=== PATIENT | female | born 1990 | race Caucasian/White ===

== ENCOUNTER 2018-08-05 06:30 | Emergency (ER) | payer OTHER ==
[2018-08-05 07:19] VITALS: BP 112/78; PULSE 78; TEMP 98; BMI 41.1
[2018-08-05] MEDS ORDERED: IBUPROFEN 400 MG TABLET (FP) PO ONE ×2 (08:02→08:04)
--- NOTE | 2018-08-05 08:06 | PDOC ---
History of Present Illness - General Chief Complaint: Injury Stated Complaint: RIGHT FOOT SWELLING Time Seen by Provider: 08/05/18 07:24 History Source: Patient - History of Present Illness Occurred: reports: this morning Lower Extremity Pain Location: right: ankle Past History - Past Medical History Allergies/Adverse Reactions: Allergies Allergy/AdvReac Type Severity Reaction Status Date / Time No Known Allergies Allergy Verified 08/20/14 18:47 Home Medications: Ambulatory Orders Naproxen [Naprosyn -] 500 mg PO BID #14 tablet 08/21/14 Ibuprofen [Motrin -] 800 mg PO Q6H #30 tablet 08/05/18 COPD: No - Suicide/Smoking/Psychosocial Hx Smoking History: Never smoked Have you smoked in the past 12 months: No Hx Alcohol Use: No Review of Systems - Review of Systems Musculoskeletal: Yes: Joint Pain, Joint Swelling Neurological: No: Numbness, Tingling *Physical Exam - Vital Signs Last Vital Signs Temp Pulse Resp BP Pulse Ox 98 F 78 18 112/78 97 08/05/18 07:12 08/05/18 07:12 08/05/18 07:12 08/05/18 07:12 08/05/18 07:12 - Physical Exam General Appearance: Yes: Appropriately Dressed, Mild Distress HEENT: positive: Normal Voice Neck: positive: Supple Respiratory/Chest: negative: Respiratory Distress Extremity: positive: Swelling (diffuse swelling to R ankle joint, most notably to lateral malleolus) Integumentary: positive: Dry, Warm Neurologic: positive: Fully Oriented, Alert, Normal Mood/Affect Procedures - Splinting Splint Location: Right: Ankle Splint Type: Yes: Dana Kelly (stirrup splint of RLE) Post-Proc Neuro Vasc Exam: normal Gary Bandage: 4" (2) Sling: No Complications: No Post splint xray: No ED Treatment Course - RADIOLOGY Radiology Studies Ordered: Category Date Time Status ANKLE & FOOT-RIGHT* [RAD] Stat Radiology 08/05/18 08:00 Ordered Medical Decision Making - Medical Decision Making 08/05/18 08:04 A 27-year-old female, no significant history, here with R ankle pain and swelling after fall. Patient states while descending steps this am, she tripped and fell on last step. Unable to bear weight since. Denies any other injuries at this time see exam R/o ankle fx -xr -pain control 08/05/18 10:51 08/05/18 10:51 Avulsion fracture of R tibia and oblique fx of distal fibula. Case d/w ortho PA who recommends stirrup posterior splint and have pt f/u in office later on today 08/05/18 11:13 Pt s/p stirrup splint of right lower extremity and given crutches for non- weightbearing. Will dc with Ortho follow-up today *DC/Admit/Observation/Transfer Diagnosis at time of Disposition: Fibula fracture Qualifiers: Encounter type: initial encounter Fibula location: distal Fracture type: closed Fracture morphology: unspecified fracture morphology Laterality: right Qualified Code(s): S82.831A - Other fracture of upper and lower end of right fibula, initial encounter for closed fracture Tibia fracture Qualifiers: Encounter type: initial encounter Tibia location: distal Fracture type: closed Fracture morphology: unspecified fracture morphology Laterality: right Qualified Code(s): S82.301A - Unspecified fracture of lower end of right tibia, initial encounter for closed fracture - Discharge Dispostion Disposition: HOME Condition at time of disposition: Improved - Prescriptions Prescriptions: Ibuprofen [Motrin -] 800 mg PO Q6H #30 tablet - Referrals Referrals: Nati Lin [Primary Care Provider] - Joel Abreu MD [Staff Physician] - - Patient Instructions Printed Discharge Instructions: DI for Ankle Fracture Additional Instructions: You were splinted for ankle fracture today and given crutches for non weight bearing. Also told to elevate your leg at home frequently to reduce swelling On the x-ray you have fracture of both of the bones in your lower legs. Take pain medication as prescribed ED staff spoke to an orthopedic PA who recommended that you call Dr. Abreu for an appointment later on today. Phone number to office is [phone] - Post Discharge Activity Forms/Work/School Notes: Back to Work
== END 2018-08-05 11:20 | disposition home or self-care (01) ==
LOC: JER 06:30
PROC: 2W3QX1Z Immobilization of Right Lower Leg using Splint (ICD-10-PCS; principal; 2018-08-05)
DX: S82.831A Other fracture of upper and lower end of right fibula, initial encounter for closed fracture (principal); S82.301A Unspecified fracture of lower end of right tibia, initial encounter for closed fracture; W10.8XXA Fall (on) (from) other stairs and steps, initial encounter; Y93.89 Activity, other specified; Y92.018 Other place in single-family (private) house as the place of occurrence of the external cause; Y99.8 Other external cause status
CPT/HCPCS: 73610-TC-RT-FY; 73630-TC-RT-FY; 99282-25

== ENCOUNTER 2018-08-28 06:01 | Day surgery (SDC) | payer OTHER ==
[2018-08-27 12:44] VITALS: BMI 41.1
[2018-08-28] MEDS ORDERED: MIDAZOLAM HCL 2 MG/2 ML SINGLE DOSE VIAL ONE (07:17)
[2018-08-28] MEDS ORDERED: ROPIVACAINE HCL 0.5% 30ML VIAL ONE (07:18)
--- NOTE | 2018-08-28 07:36 | OP ---
Operative Note - Note: Operative Date: 08/28/18 Pre-Operative Diagnosis: Right ankle ORIF revision Operation: Right ankle ORIF revision Post-Operative Diagnosis: Same as Pre-op Surgeon: Joel Abreu Slitter Cut Off Operator: Naomi Adnerson Anesthesia: General Operative Report Dictated: Yes
[2018-08-28] MEDS ORDERED: PROPOFOL 20 ML ONE ×2 (08:16→08:20)
[2018-08-28] MEDS ORDERED: ceFAZolin SODIUM 1 GM VIAL ONE (08:25)
[2018-08-28] MEDS ORDERED: DEXAMETHASONE SOD PHOSPHATE 4 MG/1 ML VIAL ONE (08:35)
[2018-08-28] MEDS ORDERED: ONDANSETRON 4 MG/2 ML VIAL ONE ×2 (08:35→10:35)
[2018-08-28] MEDS ORDERED: ACETAMINOPHEN 325 MG TABLET (FP) PO PRN (10:25)
[2018-08-28] MEDS ORDERED: ONDANSETRON 4 MG/2 ML VIAL IVPUSH PRN (10:25)
[2018-08-28] MEDS ORDERED: oxyCODONE HCL 5 MG TABLET PO PRN (10:25)
[2018-08-28] MEDS ORDERED: LACTATED RINGERS SOLUTION 1,000 ML IV SCH (10:30)
[2018-08-28 10:56] VITALS: TEMP 97.6
--- NOTE | 2018-08-28 11:45 | OP ---
DATE OF OPERATION: 08/28/2018 PREOPERATIVE DIAGNOSIS: Loss of reduction, medial malleolus. POSTOPERATIVE DIAGNOSIS: Loss of reduction, medial malleolus. PROCEDURE: Left ankle revision open reduction internal fixation. SURGEON: Joel Abreu MD CHUCKING MACHINE OPERATOR: JHONATHAN Pittman, whose skillful assistance was necessary for the safe and timely performance of this procedure. Ms. Anderson was able to help provide positioning, retraction, fracture reduction, as well as the removal and then insertion of orthopedic hardware. ANESTHESIA: General plus regional. POSTOPERATIVE CONDITION: Stable. IMPLANTS: Arthrex 4-0 cannulated and 3-0 non-cannulated screws. SPECIMEN: Cannulated screw x1. BLOOD LOSS: Minimal. TOURNIQUET TIME: 77 minutes. INDICATIONS: This is a pleasant young lady who had previously underwent open reduction, internal fixation of her ankle. On her first postoperative visit, there was a loss of reduction of the medial malleolar fragment. Given this finding, we discussed the option for revision surgery. I recommended revision to make sure of a proper alignment of the joint. So is the option of non-operative care and malunion. This may lead post-traumatic arthrosis. I discussed the risks of surgery including bleeding, infection, neurovascular injury, need for further surgery, postoperative pain or stiffness, nonunion, malunion, hardware failure or cutout. We discussed the medical risks such as heart attack, stroke, DVT, PE, and . I addressed the use of perioperative antibiotic and DVT prophylaxis. I addressed all the patients questions and concerns. She voiced understanding and elected to proceed. DESCRIPTION OF PROCEDURE: The patient was brought to the operating room where general anesthetic was administered. The right lower extremity was prepped and draped in the usual sterile fashion. A preoperative block had been applied in the holding area. Patient was given a preoperative dose of antibiotics, and the usual time-out procedure was performed. At this point, an incision was planned out over the medial malleolus incorporating a previous stab incision for a screw. Limb was now exsanguinated and the tourniquet was inflated to 250 mmHg. The incision was made through skin to subcutaneous tissue. Blunt spreading was used to expose the periosteum. This was then divided and elevated both anteriorly and posteriorly exposing the fracture site, the screw, and the distal fragment. The previous screw was now removed. The fragment was freed. A curette was used to remove any soft callus. The fracture was now reduced using a reduction clamp. A K-wire was then fired through the middle portion of the fragment securing a place. K-wire placement was verified fluoroscopically. After choosing satisfactory position, K-wire was overdrilled and a 4-0 cannulated screw was inserted. DICTATION ENDS HERE So SHELLEY/[id number]
[2018-08-28] MEDS ORDERED: oxyCODONE HCL 5 MG TABLET ONE (11:54)
[2018-08-28 14:25] VITALS: BP 110/70; PULSE 76
--- NOTE | 2018-08-29 16:03 | PATH ---
Surgical Pathology Report Patient Name: LONG PRINCE I. Med. Rec. #: [id number] /Age/Gender: 1990 (Age: 27) / F Account: [id number] Location: [facility] Taken: 08/28/2018 Received: 08/28/2018 Reported: 08/29/2018 Physicians: Joel Abreu M.D. Specimen(s) Received REMOVED HARDWARE, RIGHT ANKLE Clinical History Right ankle fracture Final Diagnosis HARDWARE, RIGHT ANKLE, REMOVAL: HARDWARE, DESCRIBED (GROSS EXAMINATION ONLY). Electronically Signed Prema Batista M.D. Gross Description Received fresh labeled "removed hardware right ankle," is a 4 cm in length flores metallic screw. No soft tissue is present. No sections are submitted, gross only. /08/28/201808/28/2018
== END 2018-08-28 13:40 | disposition home or self-care (01) ==
LOC: FASU 06:01
PROVIDERS: ATTEND Orthopaedic Surgery Sports Medicine
PROC: 0QSG04Z Reposition Right Tibia with Internal Fixation Device, Open Approach (ICD-10-PCS; principal; 2018-08-28 08:37)
DX: S82.51XA Displaced fracture of medial malleolus of right tibia, initial encounter for closed fracture (principal); X58.XXXA Exposure to other specified factors, initial encounter; Y93.9 Activity, unspecified
CPT/HCPCS: 73610-TC-RT-FY; 81025; 88300-TC; 94760